=== PATIENT | male | born 1995 | race African-American/Black ===

== ENCOUNTER 2024-02-26 18:00 | Emergency (ER) | payer SELFPAY ==
[~2024-02-26] VITALS: Ht 177.8 cm; Wt 102.0 kg
[2024-02-26 18:17] VITALS: TEMP 98.9; O2SAT 100
[2024-02-26] MEDS: KETOROLAC 30MG/ML VIAL IM ONE (21:15)
[2024-02-26 21:24] LABS: BASOPHILS % 1.4 % (0.0-2.0); EOSINOPHILS % 1.9 % (0.0-5.0); HEMATOCRIT. 42.2 % (42.0-52.0); HEMOGLOBIN. 14.6 g/dL (14.0-18.0); LYMPHOCYTES % 39.3 % (20.0-50.0); MEAN CORPUSCULAR HEMOGLOBIN 30.3 pg (28.0-32.0); MEAN CORPUSCULAR HGB CONC 34.7 g/dL (31.0-37.0); MEAN CORPUSCULAR VOLUME 87.2 fL (80.0-94.0); MEAN PLATELET VOLUME 8.6 fl (7.4-10.4); MONOCYTES % 7.4 % (2.0-8.0); PLATELET 371 x1000/uL (130-400); RED BLOOD CELL COUNT 4.84 mill/uL (4.7-6.1); RED CELL DISTRIBUTION WIDTH 14.5 % (11.6-14.6); WHITE BLOOD COUNT 8.1 x1000/uL (4.5-11.0)
[2024-02-26 21:31] LABS: CHLORIDE 104 mEq/L (98-107); SODIUM 139 mEq/L (136-145)
[2024-02-26 21:32] LABS: CALCIUM 10.5 mg/dL (8.7-10.4); CARBON DIOXIDE 31 mEq/L (21-32)
[2024-02-26 21:36] LABS: GLUCOSE 94 mg/dL (70-105)
[2024-02-26 21:37] LABS: UREA NITROGEN BLOOD 8 mg/dL (9-23)
[2024-02-26 21:39] LABS: ALANINE AMINOTRANSFERASE 36 IU/L (10-49); ALBUMIN 4.8 g/dL (3.2-4.8); ASPARTATE AMINOTRANSFERASE 21 IU/L (<34); BILIRUBIN TOTAL 0.4 mg/dL (0.1-1.0)
[2024-02-26] MEDS ORDERED: AMOX1TAB16 MT (21:52)
[2024-02-26] MEDS ORDERED: IBUP-2030 MT (21:52)
[2024-02-26] MEDS ORDERED: FLUT9.9S BOTHNSTRLS (21:52)
[2024-02-26 22:25] VITALS: BP 167/90; PULSE 77; RESP 16
== END 2024-02-26 22:26 | disposition home or self-care (01) ==
LOC: ER 19:18
DX: J32.9 Chronic sinusitis, unspecified (principal); E11.9 Type 2 diabetes mellitus without complications
CPT/HCPCS: 99283; 80053; 85025; 36415; 96372; J1885